=== PATIENT | female | born 1985 | race Caucasian/White ===

== ENCOUNTER 2021-03-18 16:14 | Emergency (ER) | payer MEDICAID, SELFPAY ==
[~2021-03-18] VITALS: Ht 157.5 cm; Wt 54.4 kg
[2021-03-18 16:33] VITALS: BP_SYST 139
--- NOTE | 2021-03-18 16:33 | NUR ---
PT TO BED 5 FOR EVALUATION.
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
--- NOTE | 2021-03-18 17:08 | NUR ---
DR. CARVAJAL AT BEDSIDE TO ASSESS.
--- NOTE | 2021-03-18 17:20 | NUR ---
# 20 gauge angiocath placed to R AC. Use of asceptic technique. Opsite placed over site. Blood return noted. Blood for lab drawn from site. Flushed with 10 cc of normal saline. No evidence of infiltration noted. Patient tolerated well.
[2021-03-18] MEDS ORDERED: DIPHENHYDRAMINE INJ 50 MG/ML VIAL IVP ONE (17:30)
[2021-03-18] MEDS ORDERED: MORPHINE 2 MG/ML INJ. SYRINGE IVP ONE (17:30)
[2021-03-18] MEDS ORDERED: NACL 0.9% 1,000 ML IV ONE (17:30)
[2021-03-18] MEDS ORDERED: cefTRIAXone 1 GM IVPB PREMIX 50 ML IV ONE (17:30)
[2021-03-18] MEDS ORDERED: VANCOMYCIN HCL 1,000 MG in D5W 250 ML IV ONE (17:30)
[2021-03-18 17:34] LABS: BASOPHILS # (AUTO) 0.1 K/uL (0.0-0.2); EOSINOPHILS # (AUTO) 0.1 K/uL (0.0-0.4); EOSINOPHILS % (AUTO) 0.7 % (0.0-4.0); HEMATOCRIT 36.5 % (36-48); HEMOGLOBIN 12.2 g/dL (12.0-16.0); LYMPHOCYTES # (AUTO) 1.1 K/uL (1.0-5.5); LYMPHOCYTES % (AUTO) 10.3 % (20.5-51.5); MEAN CORPUSCULAR HEMOGLOBIN 28 pg (27-31); MEAN CORPUSCULAR HGB CONC 33 % (32-36); MEAN CORPUSCULAR VOLUME 85 fL (79.0-98.0); MONOCYTES # (AUTO) 0.4 K/uL (0.0-1.0); MONOCYTES % (AUTO) 3.7 % (1.7-9.3); NEUTROPHILS # (AUTO) 8.6 K/uL (1.8-7.7); NEUTROPHILS % (AUTO) 84.3 % (40.0-70.0); PLATELET COUNT (AUTO) 363 K/uL (130-430); RED BLOOD CELL COUNT(AUTO) 4.29 MIL/uL (4.2-6.2); RED CELL DISTRIBUTION WIDTH 13.5 % (9.0-15.0); WHITE BLOOD COUNT (AUTO) 10.2 K/uL (4.8-10.8)
--- NOTE | 2021-03-18 17:35 | NUR ---
URINE SPECIMEN OBTAINED AND SENT TO LAB FOR ANALYSIS. HCG NEGATIVE. PT AMBULATED TO XRAY.
--- NOTE | 2021-03-18 17:38 | NUR ---
PT BACK FROM XRAY.
[2021-03-18] MEDS ORDERED: VANCOMYCIN HCL 1000 MG/VIAL IV ONE (17:44)
[2021-03-18 17:45] LABS: CALCIUM 9.1 mg/dL (8.4-11.0); CREATININE 0.78 mg/dL (0.55-1.30); POTASSIUM 3.4 mmol/L (3.5-5.1)
[2021-03-18 17:51] LABS: ALBUMIN 3.6 g/dL (3.4-4.8); TOTAL BILIRUBIN 0.5 mg/dL (0.0-1.0)
[2021-03-18 17:58] LABS: BILIRUBIN,URINE 1+ (NEGATIVE); BLOOD, URINE 3+ (NEGATIVE); COLOR,URINE YELLOW (YELLOW); GLUCOSE,URINE NEGATIVE (NEGATIVE); KETONES,URINE TRACE (NEGATIVE); LEUKOCYTE ESTERASE ,URINE 1+ (NEGATIVE); NITRITE, URINE NEGATIVE (NEGATIVE); PROTEIN URINE TRACE (NEGATIVE); UROBILINOGEN,URINE 0.2 (0.2-1.0)
[2021-03-18 18:00] LABS: CLARITY/URINE HAZY (CLEAR)
[2021-03-18 18:11] LABS: BACTERIA,URINE MODERATE /HPF (None Seen)
[2021-03-18 18:12] LABS: MUCUS,URINE 2+ /LPF (None Seen)
--- NOTE | 2021-03-18 19:10 | NUR ---
Pt resting quietly in no distress awaiting disposition.
--- NOTE | 2021-03-18 19:24 | NUR ---
LAB AT BEDSIDE FOR BLOOD DRAW.
[2021-03-18] MEDS ORDERED: TRAM100T28 PO (19:36)
--- NOTE | 2021-03-18 19:39 | NUR ---
Medication reconciliation completed with information provided by Bryan BERMUDEZ. Any prior medication reconciliation on file was reviewed and corrected. Belongings reviewed and updated with pt.
--- NOTE | 2021-03-18 19:48 | NUR ---
pj cedillo and sent to lab. Addendum: 03/18/21 at 1949 by SPENCER Pj collected and sent to lab.
--- NOTE | 2021-03-18 20:05 | NUR ---
Pt refuses to be transfered to a higher level of care. Pt wants to leave against medical advice. Pt is aware of the risks associated with leaving against medical advice. Pt signed voluntarily the against medical advice form. Pt is AAOX4.
[2021-03-18] MEDS ORDERED: PENI250T2 PO (20:07)
--- NOTE | 2021-03-18 20:08 | NUR ---
Patient does not wish to proceed with medical care recommended by . Patient given information related to possible complications, up to and including , which could occur as a result of leaving hospital at this time. Patient verbalizes understanding of risks involved leaving against medical advice. Patient has signed AMA form.
[2021-03-18 20:14] VITALS: BP_SYST 130
--- NOTE | 2021-03-18 20:15 | NUR ---
Pt left AMA. IV discontinuted. ID band removed. Dr. Ch prescribed Rx of penicillin and provided after care instructions.
== END 2021-03-18 20:14 | disposition left against medical advice (07) ==
LOC: SED 16:14
DX: M27.2 Inflammatory conditions of jaws (principal); Z79.899 Other long term (current) drug therapy; Z20.822 Contact with and (suspected) exposure to COVID-19
CPT/HCPCS: 36415; 71045; 80053; 81000; 81025; 83605; 84484; 85025; 85610; 85730; 87040; 87086; 87426; 96365; 96366; 96368; 96375; 99284; J0696; J1200; J2270; J3370

== ENCOUNTER 2021-03-27 10:43 | Emergency (ER) | payer MEDICAID, SELFPAY ==
[~2021-03-27] VITALS: Ht 157.5 cm; Wt 55.8 kg
[~2021-03-27 10:43] MED LIST: PENI250T2 PO; TRAM100T28 PO
[2021-03-27 11:13] VITALS: BP_SYST 129
[2021-03-27 12:15] VITALS: BP_SYST 129
== END 2021-03-27 12:13 | disposition home or self-care (01) ==
LOC: SED 10:43
DX: L02.01 Cutaneous abscess of face (principal); F12.90 Cannabis use, unspecified, uncomplicated; F17.210 Nicotine dependence, cigarettes, uncomplicated; Z79.899 Other long term (current) drug therapy
CPT/HCPCS: 99281

== ENCOUNTER 2021-04-12 15:07 | Emergency (ER) | payer MEDICAID, SELFPAY ==
[~2021-04-12] VITALS: Ht 157.5 cm; Wt 54.4 kg
[2021-04-12 15:20] VITALS: BP_SYST 133
[2021-04-12] MEDS ORDERED: NS 500 ML IV SCH ×2 (15:45)
[2021-04-12] MEDS ORDERED: AMPICILLIN SODIUM/SULBACTAM NA 3 GM in NS 100 ML IV ONE (15:45)
[2021-04-12] MEDS ORDERED: VANCOMYCIN HCL 1,000 MG in NS 250 ML IV ONE (16:00)
[2021-04-12] MEDS ORDERED: VANCOMYCIN HCL 1000 MG/VIAL IV ONE (16:05)
[2021-04-12] MEDS ORDERED: AMPICILLIN SODIUM/SULBACTAM NA 3 GM VIAL ONE (16:05)
[2021-04-12 16:20] LABS: BASOPHILS # (AUTO) 0.1 K/uL (0.0-0.2); BASOPHILS % (AUTO) 0.7 % (0.0-2.0); EOSINOPHILS # (AUTO) 0.2 K/uL (0.0-0.4); EOSINOPHILS % (AUTO) 1.2 % (0.0-4.0); HEMATOCRIT 35.1 % (36-48); HEMOGLOBIN 11.8 g/dL (12.0-16.0); LYMPHOCYTES # (AUTO) 1.8 K/uL (1.0-5.5); LYMPHOCYTES % (AUTO) 12.7 % (20.5-51.5); MEAN CORPUSCULAR HEMOGLOBIN 28 pg (27-31); MEAN CORPUSCULAR HGB CONC 34 % (32-36); MEAN CORPUSCULAR VOLUME 84 fL (79.0-98.0); MONOCYTES # (AUTO) 0.6 K/uL (0.0-1.0); MONOCYTES % (AUTO) 4.2 % (1.7-9.3); NEUTROPHILS # (AUTO) 11.2 K/uL (1.8-7.7); NEUTROPHILS % (AUTO) 81.2 % (40.0-70.0); PLATELET COUNT (AUTO) 394 K/uL (130-430); RED CELL DISTRIBUTION WIDTH 13.7 % (9.0-15.0); WHITE BLOOD COUNT (AUTO) 13.8 K/uL (4.8-10.8)
[2021-04-12 16:28] LABS: CALCIUM 8.9 mg/dL (8.4-11.0); CREATININE 0.64 mg/dL (0.55-1.30); POTASSIUM 3.3 mmol/L (3.5-5.1)
[2021-04-12] MEDS ORDERED: ONDANSETRON HCL 4 MG/2 ML VIAL IVP ONE (16:30)
[2021-04-12 16:33] LABS: ALBUMIN 3.5 g/dL (3.4-4.8); TOTAL BILIRUBIN 0.3 mg/dL (0.0-1.0)
[2021-04-12 16:36] LABS: C-REACTIVE PROTEIN QUANT 6.3 mg/dL (0-0.5)
[2021-04-12 16:59] LABS: ERYTHROCYTE SEDIMENTATION RATE 38 MM/HR (0-20)
[2021-04-12] MEDS ORDERED: KETOROLAC TROMETHAMINE 30 MG VIAL IVP ONE (17:30)
[2021-04-12] MEDS ORDERED: DEXAMETHASONE SOD PHOSPHATE 4 MG/ML VIAL IVP ONE (17:30)
[2021-04-12 22:37] VITALS: BP_SYST 140
== END 2021-04-12 22:37 | disposition short-term general hospital (02) ==
LOC: SED 15:07
DX: K12.2 Cellulitis and abscess of mouth (principal); M86.9 Osteomyelitis, unspecified; L03.221 Cellulitis of neck; Z79.899 Other long term (current) drug therapy
CPT/HCPCS: 36415; 70491; 76376; 80053; 83605; 84703; 85025; 85651; 86140; 87040; 87426; 96365; 96366; 96367; 96375; 99291; J0295; J1100; J1885; J2405; J3370; J7040; Q9967; 99285

== ENCOUNTER 2021-06-01 16:08 | Emergency (ER) | payer MEDICAID, SELFPAY ==
[~2021-06-01] VITALS: Ht 157.5 cm; Wt 54.4 kg
[2021-06-01 17:03] VITALS: BP_SYST 134
--- NOTE | 2021-06-01 17:05 | NUR ---
SARAN AND ASKED TO WAIT IN THE WAITING ROOM
--- NOTE | 2021-06-01 17:29 | NUR ---
Patient to h1 to gown for evaluation. Side rails up.
[2021-06-01] MEDS ORDERED: HYDROcodone/ACETAMIN 10-325 MG TAB PO ONE (17:30)
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
--- NOTE | 2021-06-01 17:45 | NUR ---
TRAY Yen at bedside examining patient.
[2021-06-01] MEDS ORDERED: AMOX-426 PO (18:52)
[2021-06-01 19:00] VITALS: BP_SYST 134
--- NOTE | 2021-06-01 19:00 | NUR ---
Patient given written and verbal discharge instructions and verbalizes understanding. ER MD discussed with patient the results and treatment provided. Patient in stable condition. ID arm band removed. Rx of AUGMENTIN given. Patient educated on pain management and to follow up with PMD. Pain Scale 0/10. Opportunity for questions provided and answered. Medication side effect fact sheet provided.
== END 2021-06-01 19:00 | disposition home or self-care (01) ==
LOC: SED 16:08
DX: R68.84 Jaw pain (principal); Z79.899 Other long term (current) drug therapy
CPT/HCPCS: 70110-TC; 81025; 99283

== ENCOUNTER 2021-06-03 15:34 | Emergency (ER) | payer MEDICAID ==
[~2021-06-03] VITALS: Ht 157.5 cm; Wt 54.4 kg
[~2021-06-03 15:34] MED LIST changes: +AMOX-426 PO
[2021-06-03 16:27] VITALS: BP_SYST 133
[2021-06-03 17:21] LABS: BASOPHILS # (AUTO) 0.1 K/uL (0.0-0.2); BASOPHILS % (AUTO) 0.4 % (0.0-2.0); HEMATOCRIT 40.4 % (36-48); HEMOGLOBIN 13.2 g/dL (12.0-16.0); LYMPHOCYTES # (AUTO) 0.4 K/uL (1.0-5.5); LYMPHOCYTES % (AUTO) 3.6 % (20.5-51.5); MEAN CORPUSCULAR HEMOGLOBIN 29 pg (27-31); MEAN CORPUSCULAR HGB CONC 33 % (32-36); MEAN CORPUSCULAR VOLUME 87 fL (79.0-98.0); MONOCYTES # (AUTO) 0.1 K/uL (0.0-1.0); MONOCYTES % (AUTO) 0.8 % (1.7-9.3); NEUTROPHILS # (AUTO) 11.9 K/uL (1.8-7.7); NEUTROPHILS % (AUTO) 95.2 % (40.0-70.0); PLATELET COUNT (AUTO) 362 K/uL (130-430); RED BLOOD CELL COUNT(AUTO) 4.65 MIL/uL (4.2-6.2); WHITE BLOOD COUNT (AUTO) 12.5 K/uL (4.8-10.8)
[2021-06-03 18:03] LABS: CALCIUM 9.6 mg/dL (8.4-11.0); CREATININE 0.81 mg/dL (0.55-1.30)
[2021-06-03 18:09] LABS: ALBUMIN 4.3 g/dL (3.4-4.8); TOTAL BILIRUBIN 0.3 mg/dL (0.0-1.0)
--- NOTE | 2021-06-03 20:15 | NUR ---
Patient to ER bed 07 to gown for evaluation. Side rails up. Report given to AIDAN BOND.
--- NOTE | 2021-06-03 21:42 | NUR ---
TRAY DIAZ at bedside examining patient.
[2021-06-03] MEDS ORDERED: MAG HYDROX/AL HYDROX/SIMETH 30 ML, LIDOCAINE VISCOUS 2% 15ML (PO) 15 ML, DICYCLOMINE HC... PO ONE ×3 (22:00)
[2021-06-03] MEDS ORDERED: NACL 0.9% 1,000 ML IV ONE (22:00)
[2021-06-03] MEDS ORDERED: ONDANSETRON HCL 4 MG/2 ML VIAL IVP ONE (22:00)
--- NOTE | 2021-06-03 22:00 | NUR ---
Pt BIB family to ED seeking evaluation of multiple episodes of vomiting that began this morning. The patient states that her last oral intake was Love's early today. She states that her symptoms are associated with abdominal pain localized over her mid epigastric region, 10 out of 10 in severity. She describes her pain as sharp in nature. She states that nothing seems to make her pain better or worse. She states that she has not yet attempted to alleviate her symptoms of medication prior to arrival
--- NOTE | 2021-06-03 22:10 | NUR ---
Apparently vomiting to a clear greenish vomitous
--- NOTE | 2021-06-03 22:15 | NUR ---
# 20 gauge angiocath placed to LEFT AC. Use of asceptic technique. Opsite placed over site. Blood return noted. Flushed with 10 cc of normal saline. No evidence of infiltration noted. Patient tolerated well.
--- NOTE | 2021-06-03 22:22 | NUR ---
Medications given as ordered, health teaching provided and verbalized understanding
--- NOTE | 2021-06-03 22:51 | NUR ---
Refused for Xray
--- NOTE | 2021-06-03 22:52 | NUR ---
Pt refused portable x ray bedside
--- NOTE | 2021-06-04 | NUR ---
VSS no s/s of acute distress Resting on gurney rails up
[2021-06-04] MEDS ORDERED: ONDA-8 TL (00:25)
[2021-06-04] MEDS ORDERED: PRO40 PO (00:25)
[2021-06-04 01:00] VITALS: BP_SYST 144
--- NOTE | 2021-06-04 01:00 | NUR ---
Patient given written and verbal discharge instructions and verbalizes understanding. ER MD discussed with patient the results and treatment provided. Patient in stable condition. ID arm band removed. IV catheter removed intact and dressing applied, no active bleeding. Rx of Zofran and Protonix given. Patient educated on pain management and to follow up with PMD. Pain Scale 0/10 Opportunity for questions provided and answered. Medication side effect fact sheet provided.
== END 2021-06-04 01:00 | disposition home or self-care (01) ==
LOC: SED 15:34
DX: R10.13 Epigastric pain (principal); R11.2 Nausea with vomiting, unspecified; Z79.899 Other long term (current) drug therapy
CPT/HCPCS: 36415; 80053; 83690; 84702; 85025; 96361; 96374; 99283; G0482; J2001; J2405; J7030